=== PATIENT | female | born 1985 | race Caucasian/White ===

== ENCOUNTER 2017-05-18 11:27 | Emergency (ER) | payer MEDICAID | END 2017-05-18 12:08 | disposition home or self-care (01) | LOC: E/R 11:27 | DX: J06.9 Acute upper respiratory infection, unspecified (principal) | CPT/HCPCS: 99283; Z7502 ==

== ENCOUNTER 2017-12-22 11:55 | Emergency (ER) | payer MEDICAID | END 2017-12-22 14:08 | disposition home or self-care (01) | LOC: FTE 11:55 | DX: J02.9 Acute pharyngitis, unspecified (principal) | CPT/HCPCS: 87430; 87880; 99283 ==

== ENCOUNTER 2017-12-29 17:01 | Emergency (ER) | payer MEDICAID | END 2017-12-29 19:20 | disposition home or self-care (01) | LOC: FTE 17:01 | DX: J02.9 Acute pharyngitis, unspecified (principal); J04.0 Acute laryngitis | CPT/HCPCS: 99283; Z7502 ==